=== PATIENT | female | born 1950 | race Caucasian/White ===

== ENCOUNTER 2018-08-18 23:14 | Emergency (ER) | payer MEDICARE, OTHER ==
--- NOTE | 2018-08-19 | ERPHSYRPT ---
- History of Present Illness Time Seen by Provider: 08/18/18 23:53 Historian: patient Exam Limitations: no limitations Patient Subjective Stated Complaint: Abdominal pain Triage Nursing Assessment: Patient ambulated back to ER and tranferred self into bed. Patient complains of abdominal pain since yesterday. Patient states the pain is in flank area also. Patient also complained of burning upon urination. Abdomen firm and round with bs present X 4. Patients pain 8/10. Physician History: The patient is a 67-year-old female with her family complaining of abdominal pain that is worse on the right lower side for 2 days. She has some difficulty urinating. She denies fever or chills. She denies vomiting. She takes no medicines because she has not seen a doctor in many years. She has a history of kidney stones. Timing/Duration: yesterday Activities at Onset: none Quality: aching Abdominal Pain Onset Location: RLQ Pain Radiation: no radiation Severity of Pain-Max: moderate Severity of Pain-Current: moderate Modifying Factors: Improves With: nothing Associated Symptoms: denies symptoms Previous symptoms: no prior history Allergies/Adverse Reactions: codeine Allergy (Verified 08/18/18 23:33) egg Allergy (Verified 08/18/18 23:33) Penicillins Allergy (Verified 08/18/18 23:33) Hx Tetanus, Diphtheria Vaccination/Date Given: Yes Hx Influenza Vaccination/Date Given: Yes Hx Pneumococcal Vaccination/Date Given: No Immunizations Up to Date: Yes - Review of Systems Constitutional: No Fever, No Chills Eyes: No Symptoms Ears, Nose, & Throat: No Symptoms Respiratory: No Cough, No Dyspnea Cardiac: No Chest Pain, No Edema, No Syncope Abdominal/Gastrointestinal: Abdominal Pain, No Nausea, No Vomiting, No Diarrhea Genitourinary Symptoms: No Dysuria Musculoskeletal: No Back Pain, No Neck Pain Skin: No Rash Neurological: No Dizziness, No Focal Weakness, No Sensory Changes Psychological: No Symptoms Endocrine: No Symptoms Hematologic/Lymphatic: No Symptoms Immunological/Allergic: No Symptoms All Other Systems: Reviewed and Negative - Past Medical History Pertinent Past Medical History: Yes Neurological History: No Pertinent History ENT History: No Pertinent History Cardiac History: No Pertinent History Respiratory History: Other Endocrine Medical History: No Pertinent History Musculoskeletal History: No Pertinent History GI Medical History: No Pertinent History History: Other Psycho-Social History: No Pertinent History Female Reproductive Disorders: Abnormal Uterine Bleeding Other Medical History: sinusitis. kidney stones - Past Surgical History Past Surgical History: Yes Neuro Surgical History: No Pertinent History Cardiac: No Pertinent History Respiratory: No Pertinent History Gastrointestinal: No Pertinent History Genitourinary: Other Musculoskeletal: No Pertinent History Female Surgical History: Other Other Surgical History: kidney stones. female surgery - Social History Smoking Status: Former smoker How long have you smoked: 15years Exposure to second hand smoke: Yes Drug Use: none Patient Lives Alone: No - Female History Hx Last Menstrual Period: Menopausal Hx Now: No - Nursing Vital Signs Nursing Vital Signs: Initial Vital Signs Temperature 97.8 F 08/18/18 23:18 Pulse Rate 89 08/18/18 23:18 Respiratory Rate 18 08/18/18 23:18 Blood Pressure 155/67 08/18/18 23:18 O2 Sat by Pulse Oximetry 97 08/18/18 23:18 Pain Scale Pain Intensity 8 - Physical Exam General Appearance: no apparent distress, alert Eye Exam: PERRL/EOMI, eyes nml inspection Ears, Nose, Throat Exam: normal ENT inspection, pharynx normal, moist mucous membranes Neck Exam: normal inspection, non-tender, supple, full range of motion Respiratory Exam: normal breath sounds, lungs clear, No respiratory distress Cardiovascular Exam: regular rate/rhythm, normal heart sounds Gastrointestinal/Abdomen Exam: tenderness (RLQ) Pelvic Exam: not done Rectal Exam: not done Back Exam: normal inspection, normal range of motion, No CVA tenderness, No vertebral tenderness Extremity Exam: normal inspection, normal range of motion, pelvis stable Neurologic Exam: alert, oriented x 3, cooperative, normal mood/affect, nml cerebellar function, sensation nml, No motor deficits Skin Exam: normal color, warm, dry SpO2 Interpretation: normal SpO2: 97 Oxygen Delivery: Room Air - CT Exams Abdomen/Pelvis CT Interpretation: Tele-radiologist Report (per Dr Escobar), diverticulitis (mild sigmoid diverticulitis.) Ordered Tests: Active Orders 24 hr Category Date Time Status Clean Catch Urine Specimen STAT Care 08/19/18 00:02 Active IV Insertion STAT Care 08/19/18 00:02 Active ABDOMEN AND PELVIS W/0 CONTRAS [CT] Stat Exams 08/19/18 00:03 Taken CBC W DIFF Stat Lab 08/19/18 00:15 Completed CMP Stat Lab 08/19/18 00:15 Completed CULTURE,URINE Stat Lab 08/19/18 00:15 Received LIPASE Stat Lab 08/19/18 00:15 Completed Lactic Acid Stat Lab 08/19/18 00:20 Completed Manual Differential NC Stat Lab 08/19/18 00:15 Completed UA W/ MICROSCOPIC Stat Lab 08/19/18 00:15 Completed Medication Summary Generic Name Dose Route Start Last Admin Trade Name Adilson PRN Reason Stop Dose Admin Ceftriaxone Sodium/Dextrose 1 g in 50 mls @ 100 mls/hr 08/19/18 01:25 01:29 Rocephin 1 Gm-D5w 50 Ml Bag IV 08/19/18 01:54 100 ml/hr STAT STA 100 mls/hr Administration Discontinued Medications Generic Name Dose Route Start Last Admin Trade Name Freq PRN Reason Stop Dose Admin Sodium Chloride 1,000 mls @ 999 mls/hr 08/19/18 00:02 08/19/18 00:32 Sodium Chloride 0.9% 1000 Ml IV 08/19/18 01:02 999 mls/hr .Q1H1M STA Administration Sodium Chloride Confirm 08/19/18 00:27 Sodium Chloride 0.9% 1000 Ml Administered 08/19/18 00:28 Dose 1,000 mls @ ud .ROUTE .STK-MED ONE Ceftriaxone Sodium/Dextrose Confirm 08/19/18 01:27 Rocephin 1 Gm-D5w 50 Ml Bag Administered 08/19/18 01:28 Dose 1 g in 50 mls @ ud IV .STK-MED ONE Ketorolac Tromethamine 30 mg 08/19/18 00:02 08/19/18 00:32 Toradol 30 Mg Injection IV 08/19/18 00:03 30 mg STAT ONE Administration Ketorolac Tromethamine Confirm 08/19/18 00:26 Toradol 30 Mg Injection Administered 08/19/18 00:27 Dose 30 mg .ROUTE .STK-MED ONE Ondansetron HCl 4 mg 08/19/18 00:02 08/19/18 00:33 Zofran 4 Mg/2 Ml Vial IV 08/19/18 00:03 4 mg STAT ONE Administration Ondansetron HCl Confirm 08/19/18 00:26 Zofran 4 Mg/2 Ml Vial Administered 08/19/18 00:27 Dose 4 mg .ROUTE [email or web address] ONE Tamsulosin HCl 0.4 mg 08/19/18 00:04 08/19/18 00:33 Flomax 0.4 Mg PO 08/19/18 00:05 0.4 mg DAILY STA Administration Tamsulosin HCl Confirm 08/19/18 00:27 Flomax 0.4 Mg Administered 08/19/18 00:28 Dose 0.4 mg .ROUTE .[facility] ONE Lab/Rad Data: Laboratory Result Diagrams 08/19/18 00:15 08/19/18 00:15 Laboratory Results 08/19/18 08/19/18 08/19/18 Range/Units 00:20 00:15 00:15 WBC (4.0-10.5) K/mm3 RBC (4.1-5.4) M/mm3 Hgb (12.0-16.0) gm/dl Hct (35-47) % MCV (78-100) fl MCH (26-32) pg MCHC (32-36) g/dl RDW (11.5-14.0) % Plt Count (150-450) K/mm3 MPV (6-9.5) fl Absolute Granulocytes (1.4-6.9) Sodium 141 (137-145) mmol/L Potassium 3.6 (3.5-5.1) mmol/L Chloride 105 (98-107) mmol/L Carbon Dioxide 24 (22-30) mmol/L Anion Gap 15.3 H (5-15) MEQ/L BUN 25 H (7-17) mg/dL Creatinine 1.00 (0.52-1.04) mg/dL Estimated GFR 59.1 ML/MIN Glucose 109 H (74-106) mg/dL Lactic Acid 1.3 (0.4-2.0) Calcium 9.3 (8.4-10.2) mg/dL Total Bilirubin 0.80 (0.2-1.3) mg/dL AST 27 (14-36) U/L ALT 18 (0-35) U/L Alkaline Phosphatase 80 (38-126) U/L Serum Total Protein 7.8 (6.3-8.2) g/dL Albumin 4.7 (3.5-5.0) g/dL Lipase 55 (23-300) U/L Ur Collection Type CLEAN CATCH Urine Color YELLOW (YELLOW) Urine Appearance SLIGHTLY CLOUDY (CLEAR) Urine pH 5.0 (5-6) Ur Specific [place] 1.025 (1.005-1.025) Urine Protein TRACE (Negative) Urine Ketones MODERATE (NEGATIVE) Urine Blood 50 (0-5) Aakash/ul Urine Nitrite NEGATIVE (NEGATIVE) Urine Bilirubin NEGATIVE (NEGATIVE) Urine Urobilinogen NORMAL (0-1) mg/dL Ur Leukocyte Esterase NEGATIVE (NEGATIVE) Urine Microscopic RBC 2-5 (0-2) /HPF Urine Microscopic WBC 10-15 (0-5) /HPF Ur Epithelial Cells FEW (FEW) /HPF Urine Bacteria MODERATE (NEGATIVE) /HPF Hyaline Casts 2-5 (0-2) /LPF Urine Mucus SLIGHT (NEGATIVE) /HPF Urine Culture Reflexed YES (NO) Urine Glucose NEGATIVE (NEGATIVE) mg/dL 08/19/18 Range/Units 00:15 WBC 11.7 H (4.0-10.5) K/mm3 RBC 4.29 (4.1-5.4) M/mm3 Hgb 13.0 (12.0-16.0) gm/dl Hct 39.4 (35-47) % MCV 91.8 (78-100) fl MCH 30.3 (26-32) pg MCHC 33.0 (32-36) g/dl RDW 13.6 (11.5-14.0) % Plt Count 348 (150-450) K/mm3 MPV 10.4 H (6-9.5) fl Absolute Granulocytes 8.28 H (1.4-6.9) Sodium (137-145) mmol/L Potassium (3.5-5.1) mmol/L Chloride (98-107) mmol/L Carbon Dioxide (22-30) mmol/L Anion Gap (5-15) MEQ/L BUN (7-17) mg/dL Creatinine (0.52-1.04) mg/dL Estimated GFR ML/MIN Glucose (74-106) mg/dL Lactic Acid (0.4-2.0) Calcium (8.4-10.2) mg/dL Total Bilirubin (0.2-1.3) mg/dL AST (14-36) U/L ALT (0-35) U/L Alkaline Phosphatase (38-126) U/L Serum Total Protein (6.3-8.2) g/dL Albumin (3.5-5.0) g/dL Lipase (23-300) U/L Ur Collection Type Urine Color (YELLOW) Urine Appearance (CLEAR) Urine pH (5-6) Ur Specific [place] (1.005-1.025) Urine Protein (Negative) Urine Ketones (NEGATIVE) Urine Blood (0-5) Aakash/ul Urine Nitrite (NEGATIVE) Urine Bilirubin (NEGATIVE) Urine Urobilinogen (0-1) mg/dL Ur Leukocyte Esterase (NEGATIVE) Urine Microscopic RBC (0-2) /HPF Urine Microscopic WBC (0-5) /HPF Ur Epithelial Cells (FEW) /HPF Urine Bacteria (NEGATIVE) /HPF Hyaline Casts (0-2) /LPF Urine Mucus (NEGATIVE) /HPF Urine Culture Reflexed (NO) Urine Glucose (NEGATIVE) mg/dL - Progress Progress: improved Counseled pt/family regarding: lab results, diagnosis, need for follow-up, rad results - Departure Time of Disposition: 01:43 Departure Disposition: Home Clinical Impression: Diverticulitis large intestine Condition: Stable Critical Care Time: No Referrals: Provider,Unknown [Primary Care Provider] - Additional Instructions: You have mild diverticulitis of your sigmoid colon. You were given Toradol 30 mg, Zofran 4 mg, Rocephin 1 g, and fluids by IV and you were given Flomax 0.4 mg orally in the ER. Take metronidazole 500 mg 3 times a day for 10 days and take ciprofloxacin 500 mg 2 times a day for 10 days. Please find a local doctor and follow-up within one week. And you still have a gallbladder on the CT scan. Prescriptions: Ciprofloxacin [Cipro 500 MG] 1 tab PO BID #20 tablet Metronidazole 500 mg PO TID #30 tablet
[2018-08-19] MEDS ORDERED: TORAdol 30 mg Injection IV ONE (00:02)
[2018-08-19] MEDS ORDERED: Sodium Chloride 0.9% 1000 ML 1,000 ML IV STA (00:02)
[2018-08-19] MEDS ORDERED: Zofran 4 MG/2 ML VIAL IV ONE (00:02)
[2018-08-19] MEDS ORDERED: Flomax 0.4 MG PO STA (00:04)
[2018-08-19] MEDS ORDERED: TORAdol 30 mg Injection ONE (00:26)
[2018-08-19] MEDS ORDERED: Zofran 4 MG/2 ML VIAL ONE (00:26)
[2018-08-19] MEDS ORDERED: Sodium Chloride 0.9% 1000 ML 1,000 ML ONE (00:27)
[2018-08-19] MEDS ORDERED: Flomax 0.4 MG ONE (00:27)
[2018-08-19 00:38] LABS: Granulocyte Absolute (ANC) 8.28 (1.4-6.9); Hematocrit 39.4 % (35-47); Mean Cell Volume 91.8 fl (78-100); Mean Corpuscular Hemoglobin 30.3 pg (26-32); Mean Platelet Volume 10.4 fl (6-9.5); Platelet Count 348 K/mm3 (150-450); Red Blood Count 4.29 M/mm3 (4.1-5.4); Red Cell Distribution Width 13.6 % (11.5-14.0); White Blood Count 11.7 K/mm3 (4.0-10.5)
[2018-08-19 00:40] LABS: Appearance SLIGHTLY CLOUDY (CLEAR)
[2018-08-19 00:41] LABS: Bilirubin NEGATIVE (NEGATIVE); Blood 50 Ery/ul (0-5); Glucose NEGATIVE (NEGATIVE); Ketones MODERATE (NEGATIVE); Leukocyte Esterase NEGATIVE (NEGATIVE); Nitrite NEGATIVE (NEGATIVE); Protein,Urine Dip TRACE (Negative); Specific Gravity 1.025 (1.005-1.025); Urobilinogen NORMAL mg/dL (0-1)
[2018-08-19 00:45] LABS: Mucus SLIGHT /HPF (NEGATIVE)
[2018-08-19 00:46] LABS: Bacteria MODERATE /HPF (NEGATIVE); Epithelial Cells FEW /HPF (FEW)
[2018-08-19 01:00] LABS: ALBUMIN 4.7 g/dL (3.5-5.0); ANION GAP 15.3 MEQ/L (5-15); BILIRUBIN,TOTAL 0.8 mg/dL (0.2-1.3); Calcium 9.3 mg/dL (8.4-10.2); Potassium 3.6 mmol/L (3.5-5.1); Total Protein 7.8 g/dL (6.3-8.2)
[2018-08-19] MEDS ORDERED: ROCEPHIN 1 Gm-D5w 50 ml Bag** 1 G/50 ML IVPB IV STA (01:25)
[2018-08-19] MEDS ORDERED: ROCEPHIN 1 Gm-D5w 50 ml Bag** 1 G/50 ML IVPB IV ONE (01:27)
[2018-08-19 01:52] VITALS: BP 125/42; PULSE 78; O2SAT 98
[2018-08-19 04:09] LABS: Eosinophil 2 % (0.00-3.0); Lymphocytes 22 % (24-44); Monocyte 5 % (0.0-12.0); Neutrophils 71 % (36.0-66.0); Platelet Estimate NORMAL (NORMAL); Total Cells Counted 100
--- NOTE | 2018-08-19 09:03 | XRAY ---
Indication: Right lower quadrant pain. Painful urination and hesitancy. Multiple contiguous axial images obtained through the abdomen and pelvis without contrast as ordered. Comparison: None Lung bases demonstrates right middle lobe calcified granuloma. No infiltrate or effusion. Heart is not enlarged. Small hiatal hernia. Noncontrasted stomach and bowel loops appear nonobstructed. Appendix not seen. Scattered sigmoid diverticulosis with mild wall thickening and stranding favoring acute diverticulitis. Tiny free fluid but no walled off fluid collection or free air. Spleen is borderline enlarged measuring 12.4 cm in greatest axial dimension with tiny calcified granulomas. Previous cholecystectomy. Remaining liver, pancreas, spleen, adrenal glands, kidneys, ureters, bladder, and uterus appear unremarkable for noncontrast exam. Minimal aortoiliac calcifications without AAA. Osseous structures intact with degenerative changes throughout the thoracolumbar spine. Incidental T10 vertebral hemangioma and T9/T12 Schmorl nodes. Small fatty umbilical hernia. Impression: 1. Sigmoid diverticulitis with tiny free fluid. 2. Incidental splenomegaly, small hiatal hernia, small fatty umbilical hernia, and evidence for old granulomatous disease. Comment: Preliminary interpretation was made by [facility]. No critical discrepancy. CT DI 21.66
== END 2018-08-19 02:03 | disposition home or self-care (01) ==
LOC: ED 23:14
DX: K57.32 Diverticulitis of large intestine without perforation or abscess without bleeding (principal); R10.31 Right lower quadrant pain
CPT/HCPCS: 36000; 36415; 74176; 80053; 81000; 83605; 83690; 85025; 87077; 87086; 87186; 96360; 96365; 96374; 96375; 99284; J0696; J1885; J2405; A9270-GY

== ENCOUNTER 2020-11-03 12:40 | Emergency (ER) | payer MEDICARE, OTHER ==
[2020-11-03] MEDS ORDERED: Sodium Chloride 0.9% 1000 ML 1,000 ML IV STA (13:10)
--- NOTE | 2020-11-03 13:10 | ERPHSYRPT ---
- History of Present Illness Time Seen by Provider: 11/03/20 12:50 Source: patient Exam Limitations: no limitations Patient Subjective Stated Complaint: Pt states that she has felt feverish, body aches and thinks she's dehydrated due to her mouth is dry Triage Nursing Assessment: Pt brought to the ER with her who is also not feeling well, hypertensive, denies pain at this time, pulses normal, last bm was last night after dinner, denies vomiting, skin n/w/d, doesn't appear to be in any distress Physician History: This is a 69-year-old white female who is not on any medications and presents with 1 week history of intermittent diarrhea, mild cough, body aches and feverish. Patient did not take her actual temperature. She has no known exposure to anyone with COVID-19 virus. Her mouth is very dry she feels as though she might be dehydrated. Her primary care doctor called her in a [facility]. Her symptoms have not improved. Timing/Duration: week(s) (one) Cough Quality/Degree: mild, dry cough Possible Cause: no prior episodes Modifying Factors: Improves With: coughing Associated Symptoms: fever, cough, shortness of breath (Mild), other (Intermittent diarrhea) Allergies/Adverse Reactions: codeine Allergy (Verified 11/03/20 12:58) egg Allergy (Verified 11/03/20 12:58) Penicillins Allergy (Verified 11/03/20 12:58) Home Medications: No Reportable Medications [No Reported Medications] 11/03/20 [History] Hx Tetanus, Diphtheria Vaccination/Date Given: Yes Hx Influenza Vaccination/Date Given: Yes Hx Pneumococcal Vaccination/Date Given: No Travel Risk - International Travel Have you traveled outside of the country in past 3 weeks: No - Coronavirus Screening Are you exhibiting any of the following symptoms?: Yes Symptoms: Fever, Vomiting/Diarrhea, Headaches/Body Aches/Fatigue Close contact with a COVID-19 positive Pt in past 14-21 Days: No - Review of Systems Constitutional: Fever, Weakness Eyes: No Symptoms Ears, Nose, & Throat: No Symptoms Respiratory: Cough, Dyspnea Cardiac: No Symptoms, No Chest Pain, No Palpitations Abdominal/Gastrointestinal: Diarrhea, No Abdominal Pain, No Nausea, No Vomiting Genitourinary Symptoms: No Symptoms Musculoskeletal: Arthralgias, Myalgias Skin: No No Symptoms Neurological: No No Symptoms Psychological: No Symptoms Endocrine: No Symptoms Hematologic/Lymphatic: No Symptoms Immunological/Allergic: No Symptoms All Other Systems: Reviewed and Negative - Past Medical History Pertinent Past Medical History: Yes Neurological History: No Pertinent History ENT History: No Pertinent History Cardiac History: No Pertinent History Respiratory History: Other Endocrine Medical History: No Pertinent History Musculoskeletal History: No Pertinent History GI Medical History: No Pertinent History History: Other Psycho-Social History: No Pertinent History Female Reproductive Disorders: Abnormal Uterine Bleeding Other Medical History: sinusitis. kidney stones - Past Surgical History Past Surgical History: Yes Neuro Surgical History: No Pertinent History Cardiac: No Pertinent History Respiratory: No Pertinent History Gastrointestinal: No Pertinent History Genitourinary: Other Musculoskeletal: No Pertinent History Female Surgical History: Other Other Surgical History: kidney stones. female surgery - Social History Smoking Status: Former smoker How long have you smoked: 15years Exposure to second hand smoke: No Drug Use: none Patient Lives Alone: No - Female History Hx Now: No - Nursing Vital Signs Nursing Vital Signs: Initial Vital Signs Temperature 97.9 F 11/03/20 12:47 Pulse Rate 75 11/03/20 12:47 Blood Pressure 149/80 11/03/20 12:47 O2 Sat by Pulse Oximetry 97 11/03/20 12:47 Pain Scale Pain Intensity 0 - Physical Exam General Appearance: no apparent distress, alert, anxiety Eye Exam: PERRL/EOMI, eyes nml inspection Ears, Nose, Throat Exam: dry mucous membranes Neck Exam: normal inspection, non-tender, supple, full range of motion Respiratory Exam: normal breath sounds, lungs clear, airway intact, No chest tenderness, No respiratory distress Cardiovascular Exam: regular rate/rhythm, normal heart sounds, normal peripheral pulses Gastrointestinal/Abdomen Exam: soft, normal bowel sounds, No tenderness Pelvic Exam: not done Rectal Exam: not done Back Exam: normal inspection, normal range of motion, No CVA tenderness, No vertebral tenderness Extremity Exam: normal inspection, normal range of motion, pelvis stable Neurologic Exam: alert, oriented x 3, cooperative, art history professor II-XII nml as tested, normal mood/affect, nml cerebellar function, nml station & gait, sensation nml Skin Exam: normal color, warm, dry Lymphatic Exam: No adenopathy SpO2 Interpretation: normal SpO2: 97 O2 Delivery: Room Air - Course Nursing assessment & vital signs reviewed: Yes EKG Interpreted by Me: RATE (74), Sinus Rhythm, NORMAL AXIS, NORMAL INTERVALS, NORMAL QRS, NORMAL ST-T, Other (No acute ischemic changes. No comparison EKG available.) Ordered Tests: Active Orders 24 hr Category Date Time Status IV Insertion STAT Care 11/03/20 13:10 Active CHEST 1 VIEW (PORTABLE) Stat Exams 11/03/20 13:32 Taken BLOOD CULTURE Stat Lab 11/03/20 13:00 Received CBC W DIFF Stat Lab 11/03/20 13:10 Completed CMP Stat Lab 11/03/20 13:10 Completed CULTURE,URINE Stat Lab 11/03/20 13:15 Received INFLUENZA A+B MEMO Stat Lab 11/03/20 13:10 Completed Lactic Acid Stat Lab 11/03/20 13:05 Completed [place] Screen Stat Lab 11/03/20 Completed UA W/RFX UR CULTURE Stat Lab 11/03/20 13:15 Completed Medication Summary Discontinued Medications Generic Name Dose Route Start Last Admin Trade Name Freq PRN Reason Stop Dose Admin Sodium Chloride 1,000 mls @ 999 mls/hr 11/03/20 13:10 11/03/20 14:47 Sodium Chloride 0.9% 1000 Ml IV 11/03/20 14:10 Infused .Q1H1M STA Infusion Sodium Chloride Confirm 11/03/20 13:17 Sodium Chloride 0.9% 1000 Ml Administered 11/03/20 13:18 Dose 1,000 mls @ ud .ROUTE .STK-MED ONE Lab/Rad Data: Laboratory Result Diagrams 11/03/20 13:10 11/03/20 13:10 Laboratory Results 11/03/20 11/03/20 11/03/20 Range/Units Unknown 13:15 13:10 WBC (4.0-10.5) K/mm3 RBC (4.1-5.4) M/mm3 Hgb (12.0-16.0) gm/dl Hct (35-47) % MCV (78-100) fl MCH (26-32) pg MCHC (32-36) g/dl RDW (11.5-14.0) % Plt Count (150-450) K/mm3 MPV (7.5-11.0) fl Gran % (36.0-66.0) % Eos # (Auto) (0-0.5) Absolute Lymphs (auto) (1.0-4.6) Absolute Monos (auto) (0.0-1.3) Lymphocytes % (24.0-44.0) % Monocytes % (0.0-12.0) % Eosinophils % (0.00-5.0) % Basophils % (0.0-0.4) % Absolute Granulocytes (1.4-6.9) Basophils # (0-0.4) Sodium (137-145) mmol/L Potassium (3.5-5.1) mmol/L Chloride (98-107) mmol/L Carbon Dioxide (22-30) mmol/L Anion Gap (5-15) MEQ/L BUN (7-17) mg/dL Creatinine (0.52-1.04) mg/dL Estimated GFR ML/MIN Glucose (74-106) mg/dL Lactic Acid (0.4-2.0) Calcium (8.4-10.2) mg/dL Total Bilirubin (0.2-1.3) mg/dL AST (14-36) U/L ALT (0-35) U/L Alkaline Phosphatase (38-126) U/L Serum Total Protein (6.3-8.2) g/dL Albumin (3.5-5.0) g/dL Urine Color [place] (YELLOW) Urine Appearance SLIGHTLY CLOUDY (CLEAR) Urine pH 5.0 (5-6) Ur Specific [place] 1.029 (1.005-1.025) Urine Protein 30 (Negative) Urine Ketones NEGATIVE (NEGATIVE) Urine Blood SMALL (0-5) Aakash/ul Urine Nitrite NEGATIVE (NEGATIVE) Urine Bilirubin NEGATIVE (NEGATIVE) Urine Urobilinogen NEGATIVE (0-1) mg/dL Ur Leukocyte Esterase NEGATIVE (NEGATIVE) Urine WBC (Auto) 3-5 (0-5) /HPF Urine RBC (Auto) 0-2 (0-2) /HPF U Hyaline Cast (Auto) 3-5 (0-2) /LPF U Epithel Cells (Auto) RARE (FEW) /HPF Urine Bacteria (Auto) NONE (NEGATIVE) /HPF Urine Mucus (Auto) MODERATE (NEGATIVE) /HPF Urine Culture Reflexed YES (NO) Urine Glucose NEGATIVE (NEGATIVE) mg/dL Monoscreen NEGATIVE (Negative) Influenza Type A Ag (NEGATIVE) Influenza Type B Ag (NEGATIVE) Group A Strep Antibody NOT DETECTED (NEGATIVE) 11/03/20 11/03/20 11/03/20 Range/Units 13:10 13:10 13:10 WBC 4.3 (4.0-10.5) K/mm3 RBC 3.99 L (4.1-5.4) M/mm3 Hgb 12.1 (12.0-16.0) gm/dl Hct 37.4 (35-47) % MCV 93.7 (78-100) fl MCH 30.3 (26-32) pg MCHC 32.4 (32-36) g/dl RDW 12.9 (11.5-14.0) % Plt Count 226 (150-450) K/mm3 MPV 10.0 (7.5-11.0) fl Gran % 53.0 (36.0-66.0) % Eos # (Auto) 0.12 (0-0.5) Absolute Lymphs (auto) 1.33 (1.0-4.6) Absolute Monos (auto) 0.51 (0.0-1.3) Lymphocytes % 31.1 (24.0-44.0) % Monocytes % 11.9 (0.0-12.0) % Eosinophils % 2.8 (0.00-5.0) % Basophils % 1.2 (0.0-0.4) % Absolute Granulocytes 2.26 (1.4-6.9) Basophils # 0.05 (0-0.4) Sodium 139 (137-145) mmol/L Potassium 3.6 (3.5-5.1) mmol/L Chloride 105 (98-107) mmol/L Carbon Dioxide 27 (22-30) mmol/L Anion Gap 10.3 (5-15) MEQ/L BUN 20 H (7-17) mg/dL Creatinine 0.82 (0.52-1.04) mg/dL Estimated GFR > 60.0 ML/MIN Glucose 105 (74-106) mg/dL Lactic Acid (0.4-2.0) Calcium 9.1 (8.4-10.2) mg/dL Total Bilirubin 0.50 (0.2-1.3) mg/dL AST 28 (14-36) U/L ALT 19 (0-35) U/L Alkaline Phosphatase 66 (38-126) U/L Serum Total Protein 7.3 (6.3-8.2) g/dL Albumin 4.2 (3.5-5.0) g/dL Urine Color (YELLOW) Urine Appearance (CLEAR) Urine pH (5-6) Ur Specific [place] (1.005-1.025) Urine Protein (Negative) Urine Ketones (NEGATIVE) Urine Blood (0-5) Aakash/ul Urine Nitrite (NEGATIVE) Urine Bilirubin (NEGATIVE) Urine Urobilinogen (0-1) mg/dL Ur Leukocyte Esterase (NEGATIVE) Urine WBC (Auto) (0-5) /HPF Urine RBC (Auto) (0-2) /HPF U Hyaline Cast (Auto) (0-2) /LPF U Epithel Cells (Auto) (FEW) /HPF Urine Bacteria (Auto) (NEGATIVE) /HPF Urine Mucus (Auto) (NEGATIVE) /HPF Urine Culture Reflexed (NO) Urine Glucose (NEGATIVE) mg/dL Monoscreen (Negative) Influenza Type A Ag NEGATIVE (NEGATIVE) Influenza Type B Ag NEGATIVE (NEGATIVE) Group A Strep Antibody (NEGATIVE) 11/03/20 Range/Units 13:05 WBC (4.0-10.5) K/mm3 RBC (4.1-5.4) M/mm3 Hgb (12.0-16.0) gm/dl Hct (35-47) % MCV (78-100) fl MCH (26-32) pg MCHC (32-36) g/dl RDW (11.5-14.0) % Plt Count (150-450) K/mm3 MPV (7.5-11.0) fl Gran % (36.0-66.0) % Eos # (Auto) (0-0.5) Absolute Lymphs (auto) (1.0-4.6) Absolute Monos (auto) (0.0-1.3) Lymphocytes % (24.0-44.0) % Monocytes % (0.0-12.0) % Eosinophils % (0.00-5.0) % Basophils % (0.0-0.4) % Absolute Granulocytes (1.4-6.9) Basophils # (0-0.4) Sodium (137-145) mmol/L Potassium (3.5-5.1) mmol/L Chloride (98-107) mmol/L Carbon Dioxide (22-30) mmol/L Anion Gap (5-15) MEQ/L BUN (7-17) mg/dL Creatinine (0.52-1.04) mg/dL Estimated GFR ML/MIN Glucose (74-106) mg/dL Lactic Acid 0.7 (0.4-2.0) Calcium (8.4-10.2) mg/dL Total Bilirubin (0.2-1.3) mg/dL AST (14-36) U/L ALT (0-35) U/L Alkaline Phosphatase (38-126) U/L Serum Total Protein (6.3-8.2) g/dL Albumin (3.5-5.0) g/dL Urine Color (YELLOW) Urine Appearance (CLEAR) Urine pH (5-6) Ur Specific [place] (1.005-1.025) Urine Protein (Negative) Urine Ketones (NEGATIVE) Urine Blood (0-5) Aakash/ul Urine Nitrite (NEGATIVE) Urine Bilirubin (NEGATIVE) Urine Urobilinogen (0-1) mg/dL Ur Leukocyte Esterase (NEGATIVE) Urine WBC (Auto) (0-5) /HPF Urine RBC (Auto) (0-2) /HPF U Hyaline Cast (Auto) (0-2) /LPF U Epithel Cells (Auto) (FEW) /HPF Urine Bacteria (Auto) (NEGATIVE) /HPF Urine Mucus (Auto) (NEGATIVE) /HPF Urine Culture Reflexed (NO) Urine Glucose (NEGATIVE) mg/dL Monoscreen (Negative) Influenza Type A Ag (NEGATIVE) Influenza Type B Ag (NEGATIVE) Group A Strep Antibody (NEGATIVE) - Progress Progress: improved, re-examined Air Movement: good Progress Note: 11/03/20 16:16 Chest x-ray shows no acute cardiopulmonary process. Blood Culture(s) Obtained: No Antibiotics given: No Counseled pt/family regarding: lab results, diagnosis, need for follow-up, rad results - Departure Departure Disposition: Home Clinical Impression: Viral illness Condition: Stable Critical Care Time: No Referrals: Provider,Unknown [Primary Care Provider] - Additional Instructions: Drink plenty of fluids. Take your medication as prescribed. Return to the emergency department if your symptoms worsen. Follow-up with your primary care physician if your symptoms persist. Quarantine yourself as instructed until your COVID-19 test results return to you.
[2020-11-03] MEDS ORDERED: Sodium Chloride 0.9% 1000 ML 1,000 ML ONE (13:17)
[2020-11-03 13:36] LABS: Absolute Neutrophil Ct (ANC) 2.26 (1.4-6.9); BASOPHIL % 1.2 % (0.0-0.4); Basophil (Absolute #) 0.05 (0-0.4); Eosinophil % 2.8 % (0.00-5.0); Eosinophil (Absolute #) 0.12 (0-0.5); Hematocrit 37.4 % (35-47); Hemoglobin 12.1 gm/dl (12.0-16.0); Lymphocyte (Absolute #) 1.33 (1.0-4.6); Lymphocytes % 31.1 % (24.0-44.0); Mean Cell Volume 93.7 fl (78-100); Mean Corpuscular Hemoglobin 30.3 pg (26-32); Mean Corpuscular Hgb Concent. 32.4 g/dl (32-36); Monocyte (Absolute #) 0.51 (0.0-1.3); Monocytes % 11.9 % (0.0-12.0); Platelet Count 226 K/mm3 (150-450); Red Blood Count 3.99 M/mm3 (4.1-5.4); Red Cell Distribution Width 12.9 % (11.5-14.0); White Blood Count 4.3 K/mm3 (4.0-10.5)
[2020-11-03 13:51] LABS: ALBUMIN 4.2 g/dL (3.5-5.0); ALKALINE PHOSPHATASE 66 U/L (38-126); ANION GAP 10.3 MEQ/L (5-15); BLOOD UREA NITROGEN 20 mg/dL (7-17); CHLORIDE 105 mmol/L (98-107); Calcium 9.1 mg/dL (8.4-10.2); Carbon Dioxide 27 mmol/L (22-30); Creatinine 1 0.82 mg/dL (0.52-1.04); EST GLOMERULAR FILTRATION RATE > 60.0 ML/MIN; Glucose 105 mg/dL (74-106); Potassium 3.6 mmol/L (3.5-5.1); SGOT/AST 28 U/L (14-36); SGPT/ALT 19 U/L (0-35); SODIUM 139 mmol/L (137-145); Total Protein 7.3 g/dL (6.3-8.2)
[2020-11-03 13:52] LABS: Appearance SLIGHTLY CLOUDY (CLEAR); Bilirubin NEGATIVE (NEGATIVE); Blood SMALL Ery/ul (0-5); Epithelial Cells RARE /HPF (FEW); Glucose NEGATIVE (NEGATIVE); Ketones NEGATIVE (NEGATIVE); Leukocyte Esterase NEGATIVE (NEGATIVE); Mucus MODERATE /HPF (NEGATIVE); Nitrite NEGATIVE (NEGATIVE); Protein,Urine Dip 30 (Negative); RBC 0-2 /HPF (0-2); Specific Gravity 1.029 (1.005-1.025); Urobilinogen NEGATIVE mg/dL (0-1)
[2020-11-03 13:58] LABS: INFLUENZA A NEGATIVE (NEGATIVE); INFLUENZA B NEGATIVE (NEGATIVE)
[2020-11-03 16:03] VITALS: BP 134/66; PULSE 70; O2SAT 97
--- NOTE | 2020-11-03 17:29 | XRAY ---
Indication: Cough and dehydration. Comparison: None Portable apical lordotic chest clear with incidental tiny calcific granulomas. Heart is not enlarged. Bony thorax intact with osteopenia, mild degenerative changes, and old left 6 rib fracture. Impression: Nonacute chest with chronic features.
== END 2020-11-03 16:30 | disposition home or self-care (01) ==
LOC: ED 12:40
DX: B34.9 Viral infection, unspecified (principal); R50.9 Fever, unspecified
CPT/HCPCS: 36000; 36415; 71045; 80053; 81001; 83605; 85025; 86308; 87040; 87086; 87400; 87651; 96360; 99284; U0003

== ENCOUNTER 2024-10-28 15:14 | Emergency (ER) | payer MEDICARE ==
[2024-10-28 15:51] VITALS: TEMP 98.5
--- NOTE | 2024-10-28 16:46 | ERPHSYRPT ---
- History of Present Illness Time Seen by Provider: 10/28/24 16:43 Source: patient, family Exam Limitations: no limitations Patient Subjective Stated Complaint: Pt. states, "I noticed a small area last Thursday. I've had these before and was able to clear them up with tea tree oil. I have tried everything at home and it keeps getting worse. " Triage Nursing Assessment: Pt ambulates to room without diff., resp even unlabored, able to move all four extremities. Large abscess noted to right buttock, skin is red, warm and area is draining purulent yellow/brown drainage. Physician History: Pt had onset of abscess left buttock for about a week and draining - les diet OK, no vomiting. Allergic to PCN, Discussed with pt and available family risks and benefits of testing/Tx including CBC, CMP, UA, wound culture, blood culture CT abd , I and D, wound packing, pain med, Antibiotic levaquin, and they wish to proceed so these are ordered. Results discussed with pt and available family. Spouse / family was present in ER to serve as independent source to confirm/collaborate the History. Timing/Duration: day(s) Quality: burning Severity: moderate Location: other (left buttock) Possible Causes: no cause identified Associated Symptoms: denies symptoms Allergies/Adverse Reactions: codeine Allergy (Verified 11/03/20 12:58) egg Allergy (Verified 11/03/20 12:58) Penicillins Allergy (Verified 11/03/20 12:58) Home Medications: Alendronate Sodium 70 mg [Fosamax 70 MG] 1 tab PO WEEKLY 10/28/24 [History] Hx Tetanus, Diphtheria Vaccination/Date Given: No Hx Influenza Vaccination/Date Given: No Hx Pneumococcal Vaccination/Date Given: No Immunizations Up to Date: No Travel Risk - International Travel Have you traveled outside of the country in past 3 weeks: No - Emerging Infectious Disease Are you exhibiting symptoms associated with any current EIDs: No - Review of Systems Constitutional: No Fever, No Chills Eyes: No Symptoms Ears, Nose, & Throat: No Symptoms Respiratory: No Cough, No Dyspnea Cardiac: No Chest Pain, No Edema, No Syncope Abdominal/Gastrointestinal: No Abdominal Pain, No Nausea, No Vomiting, No Diarrhea Genitourinary Symptoms: No Dysuria Musculoskeletal: No Back Pain, No Neck Pain Skin: Cellulitis, Other (abscess left buttock), No Rash Neurological: No Dizziness, No Focal Weakness, No Sensory Changes Psychological: No Symptoms Endocrine: No Symptoms Hematologic/Lymphatic: No Symptoms Immunological/Allergic: No Symptoms All Other Systems: Reviewed and Negative - Past Medical History Pertinent Past Medical History: Yes Neurological History: No Pertinent History ENT History: No Pertinent History Cardiac History: No Pertinent History Respiratory History: Other Endocrine Medical History: No Pertinent History Musculoskeletal History: No Pertinent History GI Medical History: No Pertinent History History: Other Psycho-Social History: No Pertinent History Female Reproductive Disorders: Abnormal Uterine Bleeding Other Medical History: sinusitis. kidney stones. Perineal abscesses - Past Surgical History Past Surgical History: Yes Neuro Surgical History: No Pertinent History Cardiac: No Pertinent History Respiratory: No Pertinent History Gastrointestinal: No Pertinent History Genitourinary: Other Musculoskeletal: No Pertinent History Female Surgical History: Other Other Surgical History: kidney stones. female surgery - Social History Smoking Status: Current every day smoker How long have you smoked: 20 years Exposure to second hand smoke: Yes Drug Use: none Patient Lives Alone: No - Social Determinants of Health Will the patient participate in the screening: Yes Do you worry about a steady place to live?: No Do you have any problems with any of the following?: No known problems In the past 12 months,have you had to go without utilities?: No Transportation Issues: No Has anyone in your support network made you feel unsafe?: No Have you or anyone in your house had to go without enough: No - Nursing Vital Signs Nursing Vital Signs: Initial Vital Signs Temperature 98.2 F 10/28/24 15:15 Pulse Rate 84 10/28/24 15:15 Respiratory Rate 18 10/28/24 15:15 Blood Pressure 168/88 10/28/24 15:15 O2 Sat by Pulse Oximetry 98 10/28/24 15:15 Pain Scale Pain Intensity 10 - Physical Exam General Appearance: no apparent distress, alert Eye Exam: PERRL/EOMI, eyes nml inspection Ears, Nose, Throat Exam: normal ENT inspection, pharynx normal, moist mucous membranes Neck Exam: normal inspection, non-tender, supple, full range of motion Respiratory Exam: normal breath sounds, lungs clear, No respiratory distress Cardiovascular Exam: regular rate/rhythm, normal heart sounds Gastrointestinal/Abdomen Exam: soft, mass, other (tender draining left buttock abscess. ), No tenderness Pelvic Exam: deferred Rectal Exam: deferred Back Exam: normal inspection, normal range of motion, No CVA tenderness, No vertebral tenderness Extremity Exam: normal inspection, normal range of motion Neurologic Exam: alert, oriented x 3, cooperative, normal mood/affect, sensation nml, No motor deficits Skin Exam: normal color, warm, dry SpO2 Interpretation: normal SpO2: 99 O2 Delivery: Room Air Procedures - Incision and Drainage Time of Procedure: 19:03 Anesthesia: 1% Lidocaine cc's of anesthesia: 5 Blade Size: 11 I & D Procedure: betadine prep, sterile drapes applied, culture obtained, irrigated with normal saline, gauze wick placed Results: large amount pus - Course Nursing assessment & vital signs reviewed: Yes - CT Exams Pelvis CT Interpretation: Tele-radiologist Report, Other (no large abcess or extension into abd or joint. per rad reading) Ordered Tests: Active Orders 24 hr Category Date Time Status IV Insertion STAT Care 10/28/24 16:52 Active PELVIS WITHOUT CONTRAST [CT] Stat Exams 10/28/24 16:47 Taken CBC W DIFF Stat Lab 10/28/24 16:50 Completed CMP Stat Lab 10/28/24 16:50 Completed CULTURE,WOUND Stat Lab 10/28/24 19:04 Received Lactic Acid Stat Lab 10/28/24 17:00 Completed UA W/RFX UR CULTURE Stat Lab 10/28/24 18:49 Ordered Medication Summary Generic Name Dose Route Start Last Admin Trade Name Freq PRN Reason Stop Dose Admin Hydromorphone HCl 0.5 mg 10/28/24 19:10 Hydromorphone 1 Mg/1ml Inj IV 10/28/24 19:11 STAT ONE Discontinued Medications Generic Name Dose Route Start Last Admin Trade Name Freq PRN Reason Stop Dose Admin Hydromorphone HCl 0.5 mg 10/28/24 16:49 10/28/24 16:54 Hydromorphone 1 Mg/1ml Inj IV 10/28/24 16:50 0.5 mg STAT ONE Administration Hydromorphone HCl Confirm 10/28/24 16:52 Hydromorphone 1 Mg/1ml Inj Administered 10/28/24 16:53 Dose 1 mg .ROUTE .STK-MED ONE Hydromorphone HCl 1 mg 10/28/24 18:19 10/28/24 18:24 Hydromorphone 1 Mg/1ml Inj IV 10/28/24 18:20 1 mg STAT ONE Administration Hydromorphone HCl Confirm 10/28/24 18:22 Hydromorphone 1 Mg/1ml Inj Administered 10/28/24 18:23 Dose 1 mg .ROUTE .STK-MED ONE Levofloxacin/Dextrose 750 mg in 150 mls @ 100 mls/hr 10/28/24 16:48 10/28/24 18:25 Levofloxacin 750mg/150ml D5w IV 10/28/24 18:17 Infused STAT STA Infusion Metronidazole 500 mg in 100 mls @ 200 mls/hr 10/28/24 16:49 10/28/24 17:32 Flagyl 500 Mg Ivpb IV 10/28/24 17:18 Infused STAT STA Infusion Metronidazole Confirm 10/28/24 16:52 Flagyl 500 Mg Ivpb Administered 10/28/24 16:53 Dose 500 mg in 100 mls @ ud IV .STK-MED ONE Levofloxacin/Dextrose Confirm 10/28/24 16:52 Levofloxacin 750mg/150ml D5w Administered 10/28/24 16:53 Dose 750 mg in 150 mls @ ud IV .STK-MED ONE Lidocaine HCl Confirm 10/28/24 18:34 Lidocaine Hcl 1% 20 Ml Mdv 20 Ml Ml Administered 10/28/24 18:35 Dose 5 ml .ROUTE .STK-MED ONE Lidocaine HCl 5 ml 10/28/24 18:37 10/28/24 18:38 Lidocaine Hcl 1% 20 Ml Mdv 20 Ml Ml IJ 10/28/24 18:38 5 ml STAT ONE Administration Lab/Rad Data: Laboratory Result Diagrams 10/28/24 16:50 10/28/24 16:50 Laboratory Results 10/28/24 10/28/24 10/28/24 Range/Units 17:00 16:50 16:50 WBC 11.1 H (3.98-10.04) x10^3/uL RBC 3.58 L (3.93-5.22) x10^6/uL Hgb 11.3 (11.2-15.7) g/dL Hct 34.6 (34.1-44.9) % MCV 96.6 H (79.4-94.8) fL MCH 31.6 (25.6-32.2) pg MCHC 32.7 (32.2-35.5) g/dL RDW 12.7 (11.7-14.4) % Plt Count 360 (182-369) x10^3/uL MPV 10.1 (9.4-12.3) fL Gran % 75.8 H (34.0-71.1) % Immature Gran % (Auto) 0.3 (0.001-0.429) % Nucleat RBC Rel Count 0.0 (0.00-0.2) % Eos # (Auto) 0.08 (0.04-0.36) x10^3/uL Immature Gran # (Auto) 0.03 (0.001-0.031) x10^3u/L Absolute Lymphs (auto) 1.84 (1.18-3.74) x10^3/uL Absolute Monos (auto) 0.67 (0.24-0.86) x10^3/uL Absolute Nucleated RBC 0.00 (0.00-0.012) x10^3u/L Lymphocytes % 16.6 L (19.3-51.7) % Monocytes % 6.0 (4.7-12.5) % Eosinophils % 0.7 (0.7-5.8) % Basophils % 0.6 (0.1-1.2) % Absolute Granulocytes 8.41 H (1.56-6.13) x10^3/uL Basophils # 0.07 (0.01-0.08) x10^3/uL Sodium 140 (135-145) mmol/L Potassium 3.8 (3.5-5.1) mmol/L Chloride 106 (98-107) mmol/L Carbon Dioxide 27 (22-30) mmol/L Anion Gap 10.7 (5-15) MEQ/L BUN 14 (7-17) mg/dL Creatinine 0.86 (0.52-1.04) mg/dL Estimated GFR 72.2 ML/MIN Glucose 89 (74-106) mg/dL Lactic Acid 1.0 (0.4-2.0) Calcium 9.0 (8.4-10.2) mg/dL Total Bilirubin 0.60 (0.2-1.3) mg/dL AST 36 (14-36) U/L ALT 22 (0-35) U/L Alkaline Phosphatase 70 (38-126) U/L Serum Total Protein 7.2 (6.3-8.2) g/dL Albumin 4.0 (3.5-5.0) g/dL - Progress Progress: improved, re-examined Progress Note: 10/28/24 18:[address] scan and read prior to drainage procedure to rule out extension of abscess - this will delay us a little longer. Counseled pt/family regarding: lab results, diagnosis, need for follow-up, rad results Medical Desision Making - Independent Historian Additional History obtained from: Spouse - Discussion of managment Reviewed:: Test results, Need for additional workup Agreed on:: Treatment plan, need for follow-up - Diagnostic Testing Diagnostic test were ordered, analyzed, and reviewed by me: Yes Radiological Interpretation: Interpreted by me, Reviewed by me, Teleradiologist Report - Risk of complications The pt has a mod risk of morbidity or mortality based on: Need for prescription drug management The pt has a high risk of morbidity or mortality based on: Decision regarding hospitilization or escalation of hosp level of care - Departure Departure Disposition: Home Clinical Impression: abscess/ celllulitis left buttock Condition: Good Critical Care Time: No Referrals: DAVID AL MD [Primary Care Provider] - Follow up/PCP as directed Instructions: Wound Infection Additional Instructions: followup your elevated blood pressure with your Dr. Return for wound check tomorrow. You will need packing changes daily for a while and then sitz bath until he aled. Return meantime if increased pain, fever, vomiting dizziness or any other symptoms of concern. Prescriptions: Metronidazole 500 mg [Flagyl 500 MG] 500 mg PO TID #30 tablet Levofloxacin [Levofloxacin 500 MG Tablet] 500 mg PO QAM #10 tablet
[2024-10-28] MEDS ORDERED: FLAGYL 500 MG IVPB 500 MG/100 ML BAG IV ONE (16:52)
[2024-10-28] MEDS ORDERED: Hydromorphone 1 mg/ml Injection ONE ×3 (16:52→19:14)
[2024-10-28] MEDS ORDERED: LEVOFLOXACIN 750MG/150ML D5W 750 MG/150 ML BAG IV ONE (16:52)
[2024-10-28] MEDS: LEVOFLOXACIN 750MG/150ML D5W 750 MG/150 ML BAG IV STA (16:53)
[2024-10-28] MEDS: Hydromorphone 1 mg/ml Injection IV ONE ×3 (16:54→19:15)
[2024-10-28] MEDS: FLAGYL 500 MG IVPB 500 MG/100 ML BAG IV STA (16:54)
[2024-10-28 17:00] LABS: Absolute Neutrophil Ct (ANC) 8.41 x10^3/uL (1.56-6.13); BASOPHIL % 0.6 % (0.1-1.2); Basophil (Absolute #) 0.07 x10^3/uL (0.01-0.08); Eosinophil % 0.7 % (0.7-5.8); Eosinophil (Absolute #) 0.08 x10^3/uL (0.04-0.36); Hematocrit 34.6 % (34.1-44.9); Hemoglobin 11.3 g/dL (11.2-15.7); IMMATURE GRAN # 0.03 x10^3u/L (0.001-0.031); IMMATURE GRAN % 0.3 % (0.001-0.429); Lymphocyte (Absolute #) 1.84 x10^3/uL (1.18-3.74); Lymphocytes % 16.6 % (19.3-51.7); Mean Cell Volume 96.6 fL (79.4-94.8); Mean Corpuscular Hemoglobin 31.6 pg (25.6-32.2); Mean Corpuscular Hgb Concent. 32.7 g/dL (32.2-35.5); Mean Platelet Volume 10.1 fL (9.4-12.3); Monocyte (Absolute #) 0.67 x10^3/uL (0.24-0.86); Neutrophil % 75.8 % (34.0-71.1); Platelet Count 360 x10^3/uL (182-369); Red Blood Count 3.58 x10^6/uL (3.93-5.22); Red Cell Distribution Width 12.7 % (11.7-14.4); White Blood Count 11.1 x10^3/uL (3.98-10.04)
[2024-10-28 17:18] LABS: ANION GAP 10.7 MEQ/L (5-15); BILIRUBIN,TOTAL 0.6 mg/dL (0.2-1.3); Creatinine 1 0.86 mg/dL (0.52-1.04); EST GLOMERULAR FILTRATION RATE 72.2 ML/MIN; Potassium 3.8 mmol/L (3.5-5.1); Total Protein 7.2 g/dL (6.3-8.2)
[2024-10-28] MEDS ORDERED: XYLOCAINE 1% HCL 20 ML MDV ONE (18:34)
[2024-10-28] MEDS: XYLOCAINE 1% HCL 20 ML MDV IJ ONE (18:38)
[2024-10-28 19:08] VITALS: O2SAT 99
[2024-10-28 19:24] VITALS: BP 155/72; PULSE 80; RESP 16
--- NOTE | 2024-10-28 19:29 | XRAY ---
Indication: Left buttock abscess. Multiple contiguous axial images obtained through the pelvis without contrast as ordered. Comparison: August 19, 2018 Exam performed prone due to discomfort. New large focus left gluteal cutaneous/subcutaneous induration at least 7.2 x 14.6 x 6.0 cm presumed inflammatory. No soft tissue emphysema, walled off fluid collection, or abscess. A few bilateral inguinal lymph nodes, none pathologically enlarged. Visualized pelvis again demonstrates scattered sigmoid diverticulosis. No intrapelvic free fluid/air. Visualized osseous structures intact. Impression: 1. New left gluteal cellulitis. No walled off fluid collection/abscess. 2. Again incidental sigmoid diverticulosis.
[2024-10-28 20:33] LABS: Appearance Clear (Clear); Bacteria None Seen /HPF (None Seen); Bilirubin Small (Negative); Blood Negative (Negative); Epithelial Cells None Seen /HPF (None Seen); Glucose, Urine Negative (Negative); Hyaline Casts NONE SEEN /LPF (0-2); Ketones Trace (Negative); Leukocyte Esterase Negative (Negative); Nitrite Negative (Negative); Protein,Urine Dip 30 (Negative); RBC 0-2 /HPF (0-5); Specific Gravity 1.025 (1.005-1.030)
== END 2024-10-28 19:39 | disposition home or self-care (01) ==
LOC: ED 15:14
DX: L02.31 Cutaneous abscess of buttock (principal); Z79.899 Other long term (current) drug therapy; Z72.0 Tobacco use
CPT/HCPCS: 10060; 36415; 72192; 80053; 81001; 83605; 85025; 87070; 87077; 87186; 96365; 96367; 96374; 96376; 99284; J1171; J1956

== ENCOUNTER 2024-10-29 19:56 | Emergency (ER) | payer MEDICARE ==
--- NOTE | 2024-10-29 21:04 | ERPHSYRPT ---
- History of Present Illness Time Seen by Provider: 10/29/24 21:04 Source: patient, family Exam Limitations: no limitations Physician History: This is a 73-year-old white female patient who is not a diabetic and presents with left buttock abscess which was incised and drained yesterday and packed with packing gauze. Patient had a full workup here in our emergency department including a CT scan of the pelvis to evaluate the size and extent of the abscess that is present. Patient underwent incision and drainage of the abscess and cultures were taken of this site. The culture and sensitivities have not yet returned. Patient was given a prescription for Levaquin and Flagyl. She has been doing 2-3 times a day sitz bath with Epsom salts to irrigate out the wound. Patient has not measured a fever. The wound is open and draining per her report. Timing/Duration: yesterday Severity: moderate Associated Symptoms: denies symptoms Allergies/Adverse Reactions: codeine Allergy (Verified 10/29/24 21:05) egg Allergy (Verified 10/29/24 21:05) Penicillins Allergy (Verified 10/29/24 21:05) Home Medications: Alendronate Sodium 70 mg [Fosamax 70 MG] 1 tab PO WEEKLY 10/28/24 [History] Hx Tetanus, Diphtheria Vaccination/Date Given: No Hx Influenza Vaccination/Date Given: No Hx Pneumococcal Vaccination/Date Given: No Travel Risk - International Travel Have you traveled outside of the country in past 3 weeks: No - Emerging Infectious Disease Are you exhibiting symptoms associated with any current EIDs: No - Review of Systems Constitutional: No Symptoms Eyes: No Symptoms Ears, Nose, & Throat: No Symptoms Respiratory: No Symptoms Cardiac: No Symptoms Abdominal/Gastrointestinal: No Symptoms Genitourinary Symptoms: No Symptoms Musculoskeletal: No Symptoms Skin: Cellulitis (Left buttock) Neurological: No Symptoms Psychological: No Symptoms Endocrine: No Symptoms Hematologic/Lymphatic: No Symptoms Immunological/Allergic: No Symptoms All Other Systems: Reviewed and Negative - Past Medical History Pertinent Past Medical History: Yes Neurological History: No Pertinent History ENT History: No Pertinent History Cardiac History: No Pertinent History Respiratory History: Other Endocrine Medical History: No Pertinent History Musculoskeletal History: No Pertinent History GI Medical History: No Pertinent History History: Other Psycho-Social History: No Pertinent History Female Reproductive Disorders: Abnormal Uterine Bleeding Other Medical History: sinusitis. kidney stones. Perineal abscesses - Past Surgical History Past Surgical History: Yes Neuro Surgical History: No Pertinent History Cardiac: No Pertinent History Respiratory: No Pertinent History Gastrointestinal: No Pertinent History Genitourinary: Other Musculoskeletal: No Pertinent History Female Surgical History: Other Other Surgical History: kidney stones. female surgery - Social History Smoking Status: Current every day smoker How long have you smoked: 20 years Exposure to second hand smoke: Yes Drug Use: none Patient Lives Alone: No - Social Determinants of Health Will the patient participate in the screening: Yes Do you worry about a steady place to live?: No In the past 12 months,have you had to go without utilities?: No Transportation Issues: No Has anyone in your support network made you feel unsafe?: No Have you or anyone in your house had to go without enough: No - Nursing Vital Signs Nursing Vital Signs: Initial Vital Signs Pulse Rate 85 10/29/24 21:11 Blood Pressure 156/78 10/29/24 21:11 O2 Sat by Pulse Oximetry 98 10/29/24 21:11 Pain Scale Pain Intensity 7 - Physical Exam General Appearance: no apparent distress, alert, anxiety Eye Exam: PERRL/EOMI, eyes nml inspection Ears, Nose, Throat Exam: normal ENT inspection, moist mucous membranes Neck Exam: normal inspection, non-tender, supple, full range of motion Respiratory Exam: normal breath sounds, lungs clear, airway intact, No chest tenderness, No respiratory distress Cardiovascular Exam: regular rate/rhythm, normal heart sounds, normal peripheral pulses Gastrointestinal/Abdomen Exam: soft, normal bowel sounds, No tenderness Pelvic Exam: not done Rectal Exam: not done Back Exam: normal inspection, normal range of motion, No CVA tenderness, No vertebral tenderness Extremity Exam: normal inspection, normal range of motion, pelvis stable Neurologic Exam: alert, oriented x 3, cooperative, mixed signal design engineer II-XII nml as tested, normal mood/affect, nml cerebellar function, nml station & gait, sensation nml Skin Exam: other (Left buttock 3 to 3-1/2 cm open wound with packing present. No odor. There is significant cellulitis present.) Lymphatic Exam: No adenopathy SpO2 Interpretation: normal O2 Delivery: Room Air - Course Nursing assessment & vital signs reviewed: Yes Ordered Tests: Active Orders 24 hr Category Date Time Status PELVIS WITHOUT CONTRAST [CT] Stat Exams 10/29/24 22:47 Completed Medication Summary Discontinued Medications Generic Name Dose Route Start Last Admin Trade Name Adilson PRN Reason Stop Dose Admin Hydromorphone HCl 1 mg 10/29/24 22:45 10/29/24 22:53 Hydromorphone 1 Mg/1ml Inj IM 10/29/24 22:46 1 mg STAT ONE Administration Hydromorphone HCl Confirm 10/29/24 22:52 Hydromorphone 1 Mg/1ml Inj Administered 10/29/24 22:53 Dose 1 mg .ROUTE .STK-MED ONE Ondansetron HCl 4 mg 10/29/24 22:45 10/29/24 22:53 Zofran 4 Mg/Udtablet Orally Disintegrating PO 10/29/24 22:46 4 mg STAT ONE Administration Ondansetron HCl Confirm 10/29/24 22:51 Zofran 4 Mg/Udtablet Orally Disintegrating Administered 10/29/24 22:52 Dose 4 mg .ROUTE .STK-MED ONE Trimethoprim/Sulfamethoxazole 1 tab 10/29/24 22:44 10/29/24 22:53 Smz/Tmp Ds Tablet 1 Tablet PO 10/29/24 22:45 1 tab STAT ONE Administration Trimethoprim/Sulfamethoxazole Confirm 10/29/24 22:52 Smz/Tmp Ds Tablet 1 Tablet Administered 10/29/24 22:53 Dose 1 tab PO .STK-MED ONE - Progress Progress: pain not gone completely Progress Note: 10/29/24 23:35 My medical decision making and the assignment of low to moderate complexity of this patient's medical issue today is based on review of the patient's past me dical history, review of the patient's medication list, reviewed patient drug allergy list, history present illness and physical findings on examination. This patient workup will include marking the area of cellulitis, providing the patient with an injection of Dilaudid 1 mg intramuscularly and oral Zofran. In addition we will provide the patient with oral Bactrim DS. I will also repeat the pelvic CT to compare yesterday's study to today's study. If the area of cellulitis/abscess is significantly worse than we will place an intravenous line and proceed with a CBC, CMP, lactic acid level and blood cultures and place the patient in observation. If the CT scans of the pelvis are comparable, the patient will return tomorrow before noon for reassessment to determine if continued outpatient therapy is reasonable. 10/29/24 23:37 Differential diagnosis includes but is not limited to cellulitis, induration, persistent abscess pocket, worsening abscess and cellulitis 10/30/24 01:04 CT scan of the pelvis without contrast was interpreted by the radiologist and I reviewed the impression. The impression states when compared to the CT scan of the pelvis without contrast dated 10/28/2024, there are postprocedural changes of the left buttock with residual superficial collection showing interval decrease in size compared to the prior scan. No deep-seated collection. Counseled pt/family regarding: diagnosis, rad results Medical Desision Making - Independent Historian Additional History obtained from: Spouse - Diagnostic Testing Diagnostic test were ordered, analyzed, and reviewed by me: Yes Radiological Interpretation: Reviewed by me, Teleradiologist Report - Risk of complications The pt has a mod risk of morbidity or mortality based on: Need for prescription drug management - Departure Departure Disposition: Home Clinical Impression: Cellulitis of left buttock Condition: Stable Critical Care Time: No Referrals: DAVID AL MD [Primary Care Provider] - Follow up/PCP as directed Additional Instructions: Continue your antibiotics as prescribed. Return to the emergency department before noon today, 10/30/2024,, for reevaluation. Continue your dressing changes and sitz bath as prescribed. Prescriptions: Hydrocodone/APAP 5/325 [[place] 5/325 mg] 1 each PO Q6H PRN PRN #10 tablet MDD 4 PRN Reason: Pain
[2024-10-29 21:30] VITALS: TEMP 97.7
[2024-10-29] MEDS ORDERED: ZOFRAN ODT 4 MG ONE (22:51)
[2024-10-29] MEDS ORDERED: BACTRIM DS TABLET PO ONE (22:52)
[2024-10-29] MEDS ORDERED: Hydromorphone 1 mg/ml Injection ONE (22:52)
[2024-10-29] MEDS: ZOFRAN ODT 4 MG PO ONE (22:53)
[2024-10-29] MEDS: BACTRIM DS TABLET PO ONE (22:53)
[2024-10-29] MEDS: Hydromorphone 1 mg/ml Injection IM ONE (22:53)
--- NOTE | 2024-10-30 01:02 | XRAY ---
CLINICAL HISTORY: Post abscess drainage COMPARISON: 10/28/2024 16:01:01 LAB ENGINEER TECHNIQUE: Contiguous axial images were obtained from the lower pole of kidneys to the pubic symphysis without intravenous or oral contrast. Coronal and sagittal reconstructions were likewise performed and indicated to increase the sensitivity for detecting clinically relevant pathology. CT scan was performed according to ALARA (as low as reasonable achievable). FINDINGS: There is an ill-defined, fluid attenuation collection in the subcutaneous tissue of the left buttock region measuring approximately 4 cm luecro-posteriorly by 2.5 cm craniocaudally. Few air foci are noted within, likely postprocedural in nature. There is adjacent mild fat stranding. Interval decrease in size compared to prior scan. No deep seated collection is identified. The bony pelvis demonstrates no acute fracture or destructive lesion. The visualized pelvic organs are unremarkable. No adenopathy or additional fluid collections are seen. The visualized muscles and soft tissues are otherwise unremarkable. IMPRESSION: 1. Postprocedural changes in left buttock with residual superficial collection showing interval decrease in size compared to prior scan. No deep seated collection. Electronically Signed by: Alfie Erwin MD. (10/30/2024 00:59:07 EST)
[2024-10-30 01:04] VITALS: RESP 18
[2024-10-30] MEDS ORDERED: NORCO 5/325 MG ONE (01:06)
[2024-10-30] MEDS: NORCO 5/325 MG PO ONE (01:07)
[2024-10-30 01:42] VITALS: BP 179/76; PULSE 83; O2SAT 96
== END 2024-10-30 01:41 | disposition home or self-care (01) ==
LOC: ED 19:56
DX: L03.317 Cellulitis of buttock (principal); L02.31 Cutaneous abscess of buttock; Z79.891 Long term (current) use of opiate analgesic; Z79.899 Other long term (current) drug therapy; Z72.0 Tobacco use
CPT/HCPCS: 72192; 96372; 99283; 99284; J1171; Q0162; A9270-GY

== ENCOUNTER 2024-10-30 12:19 | Emergency (ER) | payer MEDICARE ==
[2024-10-30 13:04] VITALS: TEMP 97.5
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
[2024-10-30] MEDS ORDERED: TORAdol 30 mg Injection ONE (13:17)
[2024-10-30] MEDS: TORAdol 30 mg Injection IM ONE (13:19)
[2024-10-30 14:13] VITALS: BP 115/45; PULSE 74; RESP 18; O2SAT 96
== END 2024-10-30 14:11 | disposition home or self-care (01) ==
LOC: ED 12:19
DX: L03.317 Cellulitis of buttock (principal)
CPT/HCPCS: 96372; 99283; J1885

== ENCOUNTER 2024-11-01 11:27 | Emergency (ER) | payer MEDICARE ==
[2024-11-01] MEDS ORDERED: TORAdol 30 mg Injection ONE (11:57)
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
[2024-11-01] MEDS: TORAdol 30 mg Injection IM ONE (11:58)
[2024-11-01 11:59] VITALS: RESP 18; TEMP 97.4
[2024-11-01 13:16] VITALS: BP 135/50; PULSE 72; O2SAT 99
== END 2024-11-01 13:14 | disposition home or self-care (01) ==
LOC: ED 11:27
DX: L02.31 Cutaneous abscess of buttock (principal)
CPT/HCPCS: 96372; 99283; J1885